=== PATIENT | male | born 1990 | race Caucasian/White ===

== ENCOUNTER → 2018-07-23 | Day surgery (SDC) | payer OTHER ==
[~2018-07-23] MED LIST: ACETAMINOPHEN 1000 MG/100 ML IV ONE; ACETAMINOPHEN/CODEINE 300MG - 30MG TAB ONE; BALANCED SALT SOLN (OPTH) 15 ML BTL IO ONE; DEXAMETHASONE SOD PHOS 10 MG/1 ML VIAL ONE; DEXAMETHASONE SOD PHOS INJ 4 MG/ML VIAL ONE; EPINEPHRINE HCL 1:1000 1ML 1 MG/ML AMP ONE; FENTANYL CITRATE/PF 100MCG/2 ML INJ ONE; LIDOCAINE 1% W/EPINEPHRINE 20 ML VIAL ONE; LIDOCAINE HCL (LTA) 4 ML SOLN ONE; LIDOCAINE HCL 2% LOCAL INJ 5 ML SDV VIAL INJ ONE; MEPERIDINE HCL INJ 25 MG/ML VIAL ONE; MIDAZOLAM HCL 2 MG/2 ML VIAL ONE; NEOSTIGMINE 1 MG/ML 10ML VIAL ONE; ONDANSETRON HCL INJ 2MG/ML 2ML 2 MG/ML VIAL ONE; PROPOFOL IV EMULSION 10 MG/ML 20 ML VIAL ONE; ROCURONIUM BROMIDE 10 MG/ML 5ML VIAL ONE; SEVOFLURANE INHAL SOLN 250 ML PEN BTL ONE
--- NOTE | 2018-07-23 05:47 | Pre Op History & Physical ---
ANTICIPATED DATE OF SURGERY: July 23, 2018. CHIEF COMPLAINT: Chronic sinusitis, nasal obstruction, and lesion in tip of his nose. HISTORY OF PRESENT ILLNESS: This 28-year-old male has longstanding history of nasal obstruction. He has decreased sense of smell. The patient had history of nasal polyposis that he was told before and had surgery about 3 years ago. The patient has no epistaxis. The patient has no injury to the nose. The patient has no history of asthma or aspirin sensitivity. The patient has a lesion in the tip of his nose for the past 6 months, which is increasing in size and irritating to the patient. The patient's condition has been treated over the past few months with topical nasal steroid, decongestant, antibiotics, and also systemic steroid with no improvement. The patient's nasal lesion has been treated with topical ointment with no improvement. 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 REVIEW OF SYSTEMS: Showed no recent cardiovascular, respiratory, or GI problem. PAST MEDICAL HISTORY: The patient has gastroesophageal reflux disease. The patient also suffers from migraine. PAST SURGICAL HISTORY: The patient had previous inguinal hernia repair and nasal polyposis excision. ALLERGIES: HE HAS NO KNOWN ALLERGY TO MEDICATION. MEDICATIONS: He is on ranitidine. SOCIAL HISTORY: He is a nonsmoker and social drinker. FAMILY HISTORY: Noncontributory. PHYSICAL EXAMINATION: VITAL SIGNS: The patient's vital signs were within normal limits. EARS: Normal tympanic membrane bilaterally. NASAL: Show deviated nasal septum on the right and left side about 40%. The patient has a lesion in the paramedian nasal tip on the left side, which is erythematous. Nasal endoscopy showed the patient has polypoid changes in the nasal cavities on both sides. OROPHARYNX AND ORAL CAVITY: Show 1+ tonsils bilaterally with Mallampati level 3. NECK: Show no lymph node or thyroid palpable. CHEST: Show good air entry bilaterally. CARDIOVASCULAR: Show S1 and S2. No murmur noted. ASSESSMENT AND PLAN: Mr. Cummings has chronic sinusitis, nasal polyposis, and lesion in tip of the nose, which has been resistant to conservative therapy. The suggested treatment is endoscopic sinus surgery, septoplasty, excision of lesion in nasal tip, and other necessary procedures. Complications of procedure include, but not limited to bleeding, infection, CSF leak, blindness, double vision, meningitis, septal perforation, septal hematoma, persistent nasal obstruction, persistent nasal crusting, nasal deformity, recurrence of the sinus problem along with poor cosmetic result, nasal deformity, persistence or recurrence of the lesion. The alternatives will be continue observation, continue antibiotic therapy, topical nasal steroid therapy, systemic steroid therapy, decongestant, and excision of nasal lesion in the office setting. The patient has elected to undergo the surgical procedure. MD CHERYL Mark/MODL /[id number]
[2018-07-23 13:25] VITALS: BP 132/84
--- NOTE | 2018-07-24 15:36 | Operative Report ---
DATE OF PROCEDURE: 07/23/2018 SURGEON: Sudarshan Gage MD CHIEF COMPLAINT: Chronic sinusitis, nasal obstruction, and lesion in tip of the nose on the paramedian left side. POSTOPERATIVE DIAGNOSES: Chronic sinusitis, nasal obstruction, and lesion in tip of the nose on the paramedian left side. OPERATIVE PROCEDURE: Bilateral anterior and posterior ethmoidectomy, bilateral maxillary sinus antrostomy, bilateral resection of tissue of maxillary antrum, bilateral sphenoidotomy, septoplasty, and excision of lesion in tip of the nose, paramedian on the left, 1 x 0.5 cm with closure. ANESTHESIA: [facility]. INDICATIONS: This 28 years old male has history of nasal obstruction, postnasal drip discharge from his nose. The patient's condition has been treated with topical nasal steroid, decongestant, and antibiotics with no improvement. The patient had nasal endoscopy and endoscopic sinus surgery before for nasal polyposis. The patient on examination was noted to have polyps in the nasal cavity on the left side coming from the maxillary antrum with mucopus. Nasal hypertrophy of inferior turbinate was noted on the right. A CT scan of paranasal sinuses done before surgery showed the patient has chronic sinusitis involving the ethmoid sinuses on both sides, worse on the left and complete opacification of the maxillary sinus on the left, partially on the right with sphenoid involvement. Also confirmed with deviated nasal septum. Nasal septum was noted to be with a spur on the left side about 30%. The patient also has a lesion in the nasal tip, which is erythematous, irritating and bleeds. The patient has been treating the lesion in the nasal tip with antibiotic ointment with no improvement. It was decided that endoscopic sinus surgery, septoplasty, and excision of nasal tip lesion and other necessary procedure will be beneficial for him. DESCRIPTION OF PROCEDURE: The patient was taken to the operating room, put under general anesthesia, endotracheally intubated. Nose was injected with 1% xylocaine with 1:100,000 epinephrine for hemostasis. Epinephrine-soaked pledget was inserted into the nose and subsequently removed. The left paranasal sinuses were approached first. Middle turbinate was medialized. The bulla ethmoidalis was entered. Mucopus was noted in the ethmoid sinuses. This was suctioned out. The anterior and posterior ethmoid sinuses were dissected in a systematic fashion. Mucosal inflammation was dissected in both the anterior and posterior ethmoid sinus area. Care was taken during dissection to was not entered. The sphenoid sinus was entered through the natural ostium. This was enlarged using a microshaver. Inflamed tissue in the sphenoid sinus was dissected using the microshaver. A polyp was noted coming from the left maxillary antrum along with mucopus and inflamed tissue. Using microshaver and 120 degree tip of the microshaver, the inflamed tissue occupying the whole of the maxillary antrum on the left side was dissected systematically. Using a 45 degree telescope, the maxillary antrum was re-examined. After the inflamed tissue and polyps were removed, no other abnormality was noted. The right paranasal sinuses were approached. The bulla ethmoidalis was entered. The anterior and posterior ethmoid sinuses were dissected in systematic fashion. Inflamed tissue was noted in both anterior and posterior ethmoid sinus area. Care was taken during dissection was not entered. The sphenoid sinus was entered through the natural ostium. This was enlarged using a microshaver. The inflamed tissue in the sphenoid sinus was dissected using a microshaver. Using scalpel, natural ostium of the maxillary sinus was entered. This was enlarged anteriorly and posteriorly using backbiter and Richard-Cut forceps respectively. Inflamed tissue in the maxillary antrum was dissected using the microshaver. The septoplasty was performed. A hemitransfixion incision was done on the left side. Mucoperichondrial flap was elevated on the left. The bony cartilaginous junction was encountered and this was . The perpendicular plate of ethmoid was transected. This was removed . The septal spur, cartilaginous portion removed using a [place] elevator and bony spur using a 4-mm straight chisel. The quadrangular cartilage after being freed from posterior inferior constrain, was able to swing back in the midline. The epinephrine-soaked pledget was inserted between the mucoperichondrial flap for about 5 minutes and subsequently removed for hemostasis. The hemitransfixion incision was closed using 4-0 chromic suture in an interrupted fashion. Septal whipstitch was done using 4-0 plain gut suture to reapproximate the mucoperichondrial flap and prevent septal hematoma formation. NasoPore was inserted in the sinus cavities on either side. This was done to prevent synechia formation and for hemostasis. The nasal tip lesion paramedian left side was excised. The area was prepped and draped in a sterile fashion. The area was marked out along one of the relaxed skin tension line. This was excised. The size of the defect was 0.5 x 1 cm. The lesion was sent for permanent section. Closure of this area was undertaken. The submucosal flaps superior and inferiorly were elevated. The flap was advanced in the midline and closed on itself using 5-0 Ethilon suture in the interrupted fashion. The patient tolerated the above procedure well with estimated blood loss about 30 mL. He was given 20 mg of Decadron intraoperatively. The patient was able to be transferred to recovery room in stable condition. MD CHREYL Mark/LAURIL /[id number]
== END | disposition home or self-care (01) ==
LOC: OR 10:18 → EDBD 12:30
PROVIDERS: ATTEND Otolaryngology Otolaryngology/Facial Plastic Surgery
DX: J32.0 Chronic maxillary sinusitis (principal); K21.9 Gastro-esophageal reflux disease without esophagitis; G43.909 Migraine, unspecified, not intractable, without status migrainosus; J33.9 Nasal polyp, unspecified; L98.8 Other specified disorders of the skin and subcutaneous tissue
CPT/HCPCS: 11441; 30520; 31257; 31267; 88300; 88304; 88305; J0131; J0171; J1100 ×2; J2001; J2175; J2250; J2405; J2704; J2710